=== PATIENT | female | born 1950 | race Caucasian/White ===

== ENCOUNTER 2018-05-22 19:13 | Inpatient (IN) | payer MEDICARE, OTHER ==
[~2018-05-22] VITALS: Ht 162.6 cm; Wt 87.1 kg
[~2018-05-22 19:13] MED LIST: DIPH25CA58 PO; HYDR-2145 PO; LISI1TAB5; LISI1TAB5 PO; LOSA100T2 PO; MELO7.5T29 PO; MELO7.5T5; TRAM50TA PO
[2018-05-22 20:13] LABS: BILIRUBIN,URINE MODERATE (NEG); CLARITY,URINE CLEAR; COLOR,URINE YELLOW; NITRITE,URINE NEGATIVE (NEG); PROTEIN,URINE NEGATIVE (NEG-TRACE); UROBILINOGEN,URINE 0.2 mg/dL (0.2 mg/dL)
[2018-05-22] MEDS ORDERED: fentaNYL PF VIAL 100 MCG/2 ML VIAL IV ONE (20:15)
[2018-05-22] MEDS ORDERED: IV NORMAL SALINE 1000ML BAG 1,000 ML IV ONE ×2 (20:15)
--- NOTE | 2018-05-22 20:16 | PHYS DOC ---
Past Medical History Past Medical History: Diabetes-Type II, Hypertension, Other Additional Past Medical Histor: RSD (KANU RUBIO APRN) Past Surgical History: Appendectomy, Hysterectomy, Other Additional Past Surgical Histo: bilat. lower ribs removed (KANU RUBIO APRN) Alcohol Use: None Drug Use: None (KANU RUBIO APRN) Adult General Chief Complaint Chief Complaint: BLOOD SUGAR PROBLEM HPI HPI 67-year-old female presents to ER via POV from urgent care for elevated blood sugar. Patient reports over the past couple of weeks she has felt fatigued and just not herself. He is type II diabetic but does not check her blood sugar. Patient states she has felt feverish and had dysuria for the past 3 days. Patient reports for the past week she has had right ear pain and reports a couple of days where she had yellowish/purulent drainage. Patient reports she has developed a rash under her left breast. Patient reports she has had increased thirst and urination frequency. Patient denies any chest pain, palpitations, or shortness of air. Patient denies having any abdominal pain or N /V/D. Urgent care had reported to patient her blood sugar was over 500 and she had ketones in her urine. (KANU RUBIO APRN) Review of Systems Review of Systems Constitutional: Denies fever or chills. Reports generalized fatigue/weakness Eyes: Denies change in visual acuity, redness, or eye pain [] HENT: Denies nasal congestion or sore throat. Reports rt ear pressure- with drainage in past few days Respiratory: Denies cough or shortness of breath [] Cardiovascular: Denies CP/palpitations GI: Denies abdominal pain, nausea, vomiting, bloody stools or diarrhea [] : Denies hematuria. Reports increased urination with dysuria Musculoskeletal: Denies back/neck pain or joint pain [] Integument: Denies rash or skin lesions [] Neurologic: Denies dizziness, focal weakness or sensory changes. Endocrine: Reports polyuria or polydipsia [] All other systems were reviewed and found to be within normal limits, except as documented in this note. (KANU RUBIO APRN) Current Medications Current Medications Current Medications Medications (Trade) Dose Ordered Sig/Peggy Start Time Stop Time Status Last Admin Dose Admin Fentanyl Citrate (Fentanyl 2ml Vial) 25 mcg 1X ONCE 05/22/18 20:15 05/22/18 20:16 DC 05/22/18 20:18 25 MCG Sodium Chloride 1,000 ml @ 1,000 mls/hr 1X ONCE 05/22/18 20:15 05/22/18 21:14 DC 05/22/18 20:15 1,000 MLS/HR (CARROLL JOHN DO) Allergies Allergies Allergies Coded Allergies Type Severity Reaction Last Updated Verified Sulfa (Sulfonamide Antibiotics) Allergy Intermediate 08/19/13 Yes codeine Allergy Intermediate tolerates Morphine 08/19/13 Yes erythromycin base Allergy Intermediate 08/19/13 Yes (CARROLL JOHN DO) Physical Exam Physical Exam Constitutional: Well developed, well nourished, anxious/tearful/restless- at times uncooperative during exam and discussion, non-toxic appearance. Fatigued appearance HENT: Normocephalic, atraumatic, bilateral external ears normal- erythema at rt TM without bulging/perforation/purulent or bloody drainage, lt ear exam NL; mucous membranes pink/dry, no oral exudates, nose normal. [] Eyes: PERRLA, conjunctiva normal, no discharge. [] Neck: Normal range of motion, no tenderness, supple, no stridor. [] Cardiovascular: Heart rate regular rhythm, no murmur [] Lungs & Thorax: Bilateral breath sounds clear to auscultation. Resp. equal/ nonlabored Abdomen: Bowel sounds normal, soft, no tenderness, no masses, no pulsatile masses. [] Skin: Warm, dry. Erythema under lt breast with no drainage/open wounds. Site is tender on palp. No breast involvement. Back: No tenderness, no CVA tenderness. [] Extremities: No tenderness, no cyanosis, no clubbing, ROM intact, no edema. [] Neurologic: Alert and oriented X 3, normal motor function, normal sensory function, no focal deficits noted. [] Psychologic: Upon entering pt's room found her to be twisted in call center recruiter cords- crying/anxious. Pt following conversation/emotional support calmed and was more cooperative. She denies SI. (REFFITT,KANU Pfeiffer APRN) Current Patient Data Lab Values Laboratory Tests Test 05/22/18 20:05 05/22/18 20:08 05/22/18 21:57 White Blood Count 7.0 x10^3/uL (4.0-11.0) Red Blood Count 5.13 x10^6/uL (3.50-5.40) Hemoglobin 14.7 g/dL (12.0-15.5) Hematocrit 43.6 % (36.0-47.0) Mean Corpuscular Volume 85 fL (79-100) Mean Corpuscular Hemoglobin 29 pg (25-35) Mean Corpuscular Hemoglobin Concent 34 g/dL (31-37) Red Cell Distribution Width 13.3 % (11.5-14.5) Platelet Count 192 x10^3/uL (140-400) Neutrophils (%) (Auto) 65 % (31-73) Lymphocytes (%) (Auto) 27 % (24-48) Monocytes (%) (Auto) 5 % (0-9) Eosinophils (%) (Auto) 2 % (0-3) Basophils (%) (Auto) 1 % (0-3) Neutrophils # (Auto) 4.6 x10^3uL (1.8-7.7) Lymphocytes # (Auto) 1.9 x10^3/uL (1.0-4.8) Monocytes # (Auto) 0.3 x10^3/uL (0.0-1.1) Eosinophils # (Auto) 0.1 x10^3/uL (0.0-0.7) Basophils # (Auto) 0.1 x10^3/uL (0.0-0.2) Segmented Neutrophils % 62 % (35-66) Band Neutrophils % 6 % (0-9) Lymphocytes % 27 % (24-48) Monocytes % 2 % (0-10) Eosinophils % 3 % (0-5) Platelet Estimate Adequate (ADEQUATE) Urine Collection Type Unknown Urine Color Yellow Urine Clarity Clear Urine pH 5.0 Urine Specific [place] >=1.030 Urine Protein Negative mg/dL (NEG-TRACE) Urine Glucose (UA) >=1000 mg/dL (NEG) Urine Ketones (Stick) 40 mg/dL (NEG) Urine Blood Negative (NEG) Urine Nitrite Negative (NEG) Urine Bilirubin Moderate (NEG) Urine Urobilinogen Dipstick 0.2 mg/dL (0.2 mg/dL) Urine Leukocyte Esterase Negative (NEG) Urine RBC 0 /HPF (0-2) Urine WBC 5-10 /HPF (0-4) Urine Squamous Epithelial Cells Mod /LPF Urine Bacteria Moderate /HPF (0-FEW) Urine Mucus Slight /LPF Sodium Level 126 mmol/L (136-145) L Potassium Level 5.2 mmol/L (3.5-5.1) H Chloride Level 87 mmol/L (98-107) L Carbon Dioxide Level 18 mmol/L (21-32) L Anion Gap 21 (6-14) H Blood Urea Nitrogen 17 mg/dL (7-20) Creatinine 0.9 mg/dL (0.6-1.0) Estimated GFR (Cockcroft-Gault) 62.5 BUN/Creatinine Ratio 19 (6-20) Glucose Level 458 mg/dL (70-99) H Plasma/Serum Osmolality 300 mOsmol/kg (280-301) Calcium Level 9.8 mg/dL (8.5-10.1) Magnesium Level 1.9 mg/dL (1.8-2.4) Total Bilirubin 0.7 mg/dL (0.2-1.0) Aspartate Amino Transferase (AST) 11 U/L (15-37) L Alanine Aminotransferase (ALT) 6 U/L (14-59) L Alkaline Phosphatase 89 U/L (46-116) Troponin I Quantitative < 0.017 ng/mL (0.000-0.055) Total Protein 9.2 g/dL (6.4-8.2) H Albumin 3.2 g/dL (3.4-5.0) L Albumin/Globulin Ratio 0.5 (1.0-1.7) L Acetone Level Neg (NEG) Glucose (Fingerstick) 448 mg/dL (70-99) H 308 mg/dL (70-99) H Laboratory Tests 05/22/18 20:05 Laboratory Tests 05/22/18 20:05 Microbiology 05/22/18 Urine Culture - Final, Complete 05/22/18 Urine Culture Result 1 (ELINOR) - Final, Complete (CARROLL JOHN DO) EKG EKG EKG obtained 05/22/18 at [address] John Sinus rhythm Rate 75 No STEMI (REFKANU MARTIN AUTOMOTIVE STARTER REPAIRER) Radiology/Procedures Radiology/Procedures PROCEDURE: CHEST AP ONLY EXAM: Chest, single view. HISTORY: Fatigue. COMPARISON: 08/19/2013 FINDINGS: A frontal view of the chest obtained. There is no infiltrate, pleural effusion or pneumothorax. The heart is normal in size. There are surgical clips overlying the upper thorax and there has been suspected bilateral first or cervical rib resection. IMPRESSION: No acute pulmonary finding. Electronically signed by: Belkis Lassiter MD (05/22/2018 9:45 PM) [facility] DICTATED and SIGNED BY: BELKIS LASSITER MD DATE: 05/22/182143 (KANU RUBIO APRN) Course & Med Decision Making Course & Med Decision Making Pertinent Labs and Imaging studies reviewed. (See chart for details) Patient was evaluated in the ER for elevated blood sugar- initial blood glucose was 458 with anion gap of 21. Na correction was calculated with correction at 131. Pt had 2L NS IV fld bolus and on recheck. At 2156 following fluid bolus Accu check at 308- 10 units SQ Regular insulin ordered. UA neg. leuks/nitrates- mod bacteria/squamous on micro. Test results and admission discussed with pt- she is agreeable with admit plan. 2250: Spoke with Dr. Caba, pt's PCP and discussed pt's case and admit plan. Will admit pt to Med/Tele for further monitoring. (KANU RUBIO APRN) Dragon Disclaimer Dragon Disclaimer This electronic medical record was generated, in whole or in part, using a voice recognition dictation system. (KANU RUBIO APRN) Departure Departure Impression: Primary Impression: Hyperglycemia Disposition: ADMITTED INPATIENT Admitting Physician: Swetha Caba (CARROLL JOHN DO) Condition: STABLE Referrals: SWETHA CABA MD (PCP) Attending Signature Attending Signature I have reviewed the PA/PARTNER MANAGEMENT CONSULTANT's note and plan of care. I was available for consultation as needed during the patient's visit in the emergency department. I agree with the clinical impression, plan, and disposition. (CARROLL JOHN DO) KANU RUBIO APRN May 22, 2018 20:16 CARROLL JOHN DO Jul 12, 2018 13:20
[2018-05-22 20:18] LABS: BACTERIA,URINE MODERATE /HPF (0-FEW); RBC,URINE 0 /HPF (0-2); SQUAMOUS EPITHELIAL CELL,UR MOD /LPF
[2018-05-22 20:39] LABS: BASO # 0.1 x10^3/uL (0.0-0.2); BASO % 1 % (0-3); EOS # 0.1 x10^3/uL (0.0-0.7); EOS % 2 % (0-3); HEMATOCRIT 43.6 % (36.0-47.0); HEMOGLOBIN 14.7 g/dL (12.0-15.5); LYMPH # 1.9 x10^3/uL (1.0-4.8); LYMPH % 27 % (24-48); MEAN CORPUSCULAR HEMOGLOBIN 29 pg (25-35); MEAN CORPUSCULAR HGB CONC 34 g/dL (31-37); MEAN CORPUSCULAR VOLUME 85 fL (79-100); MONO # 0.3 x10^3/uL (0.0-1.1); MONO % 5 % (0-9); NEUT # 4.6 x10^3uL (1.8-7.7); NEUT % 65 % (31-73); RED BLOOD COUNT 5.13 x10^6/uL (3.50-5.40); RED CELL DISTRIBUTION WIDTH 13.3 % (11.5-14.5)
[2018-05-22 20:41] LABS: PLATELET COUNT 192 x10^3/uL (140-400)
[2018-05-22 21:04] LABS: % BANDS 6 % (0-9); % EOS 3 % (0-5); % LYMPHS 27 % (24-48); % MONOS 2 % (0-10); % SEGS 62 % (35-66); PLT ESTIMATE ADEQUATE (ADEQUATE)
[2018-05-22 21:34] LABS: CALCIUM 9.8 mg/dL (8.5-10.1); CREATININE 0.9 mg/dL (0.6-1.0); GFR 62.5; POTASSIUM 5.2 mmol/L (3.5-5.1)
[2018-05-22 21:40] LABS: TOTAL BILIRUBIN 0.7 mg/dL (0.2-1.0); TOTAL PROTEIN 9.2 g/dL (6.4-8.2)
--- NOTE | 2018-05-22 21:48 | RAD ---
EXAM: Chest, single view. HISTORY: Fatigue. COMPARISON: 08/19/2013 FINDINGS: A frontal view of the chest obtained. There is no infiltrate, pleural effusion or pneumothorax. The heart is normal in size. There are surgical clips overlying the upper thorax and there has been suspected bilateral first or cervical rib resection. IMPRESSION: No acute pulmonary finding. Electronically signed by: Belkis Marcelo MD (05/22/2018 9:45 PM) [facility]
[2018-05-22 22:00] LABS: MAGNESIUM 1.9 mg/dL (1.8-2.4)
[2018-05-22 22:02] LABS: ALBUMIN 3.2 g/dL (3.4-5.0); ALBUMIN/GLOBULIN RATIO 0.5 (1.0-1.7)
[2018-05-22] MEDS ORDERED: INSULIN REGULAR 100 UNIT/ML 3ML VIAL. SQ ONE (23:00)
[2018-05-22] MEDS ORDERED: ACETAMINOPHEN 325 MG TABLET. PO PRN (23:45)
[2018-05-23] VITALS (7 sets, daily range): BP systolic 102–158; BP diastolic 42–89
[2018-05-23] MEDS ORDERED: DEXTROSE 50% 25 GM / 50ML DISP.SYRIN. IV PRN
[2018-05-23] MEDS ORDERED: IV NORMAL SALINE 1000ML BAG 1,000 ML IV SCH
[2018-05-23] MEDS ORDERED: SPIR25TA5 PO (00:51)
[2018-05-23] MEDS ORDERED: METF500T16 PO (00:52)
[2018-05-23 04:59] LABS: BASO % 1 % (0-3); EOS # 0.1 x10^3/uL (0.0-0.7); EOS % 1 % (0-3); HEMATOCRIT 35.3 % (36.0-47.0); HEMOGLOBIN 12.2 g/dL (12.0-15.5); LYMPH # 1.6 x10^3/uL (1.0-4.8); LYMPH % 29 % (24-48); MEAN CORPUSCULAR HEMOGLOBIN 29 pg (25-35); MEAN CORPUSCULAR HGB CONC 35 g/dL (31-37); MEAN CORPUSCULAR VOLUME 83 fL (79-100); MONO # 0.3 x10^3/uL (0.0-1.1); MONO % 5 % (0-9); NEUT # 3.5 x10^3uL (1.8-7.7); NEUT % 64 % (31-73); PLATELET COUNT 128 x10^3/uL (140-400); RED BLOOD COUNT 4.23 x10^6/uL (3.50-5.40); RED CELL DISTRIBUTION WIDTH 13.1 % (11.5-14.5); WHITE BLOOD COUNT 5.5 x10^3/uL (4.0-11.0)
[2018-05-23 05:21] LABS: ALBUMIN 2.3 g/dL (3.4-5.0); ALBUMIN/GLOBULIN RATIO 0.6 (1.0-1.7); CALCIUM 7.9 mg/dL (8.5-10.1); CREATININE 0.7 mg/dL (0.6-1.0); GFR 83.5; POTASSIUM 3.7 mmol/L (3.5-5.1); TOTAL BILIRUBIN 0.4 mg/dL (0.2-1.0)
[2018-05-23 06:01] LABS: TOTAL PROTEIN 6.1 g/dL (6.4-8.2)
[2018-05-23] MEDS ORDERED: INSULIN LISPRO 300 UNITS/3 ML INSULN.PEN. SQ SCH (08:00)
[2018-05-23] MEDS ORDERED: cefTRIAXone IV Push 1 GM VIAL. IVP ONE (08:45)
[2018-05-23] MEDS: NYSTATIN TOPICAL POWDER 15GM BOTTLE. TP SCH ×2 (09:02→20:51)
[2018-05-23] MEDS: NEOMYCIN/POLYMYXIN/HC OTIC SUSPENSION 10ML BOTTLE. AD SCH ×4 (09:14→20:51)
[2018-05-23] MEDS: metFORMIN 500 MG TABLET PO SCH ×2 (09:19→17:42)
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
--- NOTE | 2018-05-23 10:26 | EKG ---
[facility] [address] [place] [address] Test Date: 2018-05-22 Test Time: 20:16:40 Pat Name: KIKI POOLE Department: Room: 648 1 Gender: F Crime Lab Technician: : [id number] Requested By: KANU RUBIO Order Number: [id number] Reading MD: Julian Mobley MD Measurements Intervals [place] Rate: 75 P: -54 NE: 114 QRS: 20 QRSD: 80 T: 139 QT: 392 QTc: 440 Interpretive Statements SR NON-SPECIFIC ST/T CHANGES Electronically Signed On 05-26-2018 10:14:59 PAY PER CLICK STRATEGIST by Julian Mobley MD
[2018-05-23] MEDS ORDERED: INSULIN LISPRO 300 UNITS/3 ML INSULN.PEN. SQ ONE (12:30)
[2018-05-23] MEDS ORDERED: INSULIN GLARGINE 300 UNITS/3 ML INSULN.PEN. SQ SCH (13:00)
[2018-05-23] MEDS ORDERED: diphenhydrAMINE HCL 25 MG CAPSULE PO PRN (13:15)
[2018-05-23] MEDS: traMADol 50 MG TABLET PO PRN ×2 (13:39→20:51)
[2018-05-23] MEDS: SPIRONOLACTONE 25 MG TABLET PO SCH (15:25)
[2018-05-23] MEDS: hydroCHLOROthiazide 25 MG TABLET PO SCH (15:25)
--- NOTE | 2018-05-23 16:29 | PDOC2 ---
NEUROLOGY CONSULT Date of Admission Date of Admission DATE: 05/23/18 TIME: 16:10 Reason for Consult Reason for Consult: IMPRESSION: RSD, chronic. Hyperglycemia, glucose >500 checked in urgent care clinic. Metabolic encephalopathy. Hyponatremia, Na+ 125. Hyperkalemia, K+ 5.2. Generalized weakness. Numbness, tingling, burning and pain around neck and UE. UTI. DM. HTN. Chronic ear pain. Depression. RECOMMENDATIONS/PLAN: Control hyperglycemia. Lyrica 100 mg bid with titration up, but patient had insurance problems for coverage. Vit B6 10 mg daily. Vit B1 100 mg daily. C-spine MRI w/o [place] Lab: see orders including Vit B12 level. Treat medical diseases. Discussed with her in all detail at bedside on 05/23/18. HISTORY OF THE PRESENT ILLNESS: This is a 67-year-old white female, patient of Dr. Tres Gutierrezs, was sent from urgent care to the Emergency Room because of profoundly hyperglycemia. She went to the urgent care because of a right earache and was found to have a right ear infection in addition. She also admits to a little burning with urination and has had a marked increase over the last week of thirst as well as urination, was found to have sugars greater than 500 in urgent care, 458 here with related hyponatremia, decreased CO2 level, increased anion gap. She was noted to have ketones in her urine in addition. Neurology was requested for consultation for RSD. She stated she has been having lomgstanding history of numbness, tingling, burning and pain in her neck , scapular, upper chest, and UE for about 30 years and has tried a variety of treatment but no help. PAST MEDICAL HISTORY: Diabetes, hypertension, and reflex sympathetic dystrophy. PAST SURGICAL HISTORY: Appendectomy, hysterectomy and some prior rib surgery. ALLERGIES: ALLERGIC TO PENICILLIN, SULFA, ERYTHROMYCIN, AND HYDROCODONE. FAMILY HISTORY: Noncontributory. MEDICATIONS: Refer to [facility] SOCIAL HISTORY: Lives at home. Denies drinking and illicit drug use. She smokes 1 pack of cigarettes in 2 days for many years, and quit about 3 weeks ago. REVIEW OF SYSTEMS: Constitutional: Obesity. Head: No traumatic brain or head injury. Skin: No edema, or rash. Ear: Chronic ear infection. Eyes: No vision loss or color blindness. Nose: No bleeding or purulent discharges. Hearing: No hearing decrease. Neck: Pain. Breast: No history of cancer, masses,or discharges. Cardiac: HTN. Pulmonary: No COPD. GI: No GI ulcer, GI bleeding. Urinary/genital: UTI. Endocrinologic: Diabetes Mellitus. Skeletomuscular: Generalized weakness. Neurological: see HP. Psychiatric: Denies drug use/abuse. Otherwise, not [id number] review of systems. PHYSICAL EXAMINATION: General appearance is in subacute distress. HEENT: Normocephalic and nontraumatic. Eyes, nose, ears, and throat are unremarkable. Neck is supple. No lymphadenopathy. No crepitus. Cardiovascular: S1, S2, regular rate and rhythm. Pulmonary: Clear to auscultation bilaterally. Abdomen: Bowel sounds are positive. Extremities: No rash, lesions, or edema. No restriction of range of motion NEUROLOGICAL EXAMINATION: Alert Oriented to time, place and person. PERRL. EOMI. CN: no focal findings. Muscle tone: within normal. Muscle strength: 5- DTR: 1+ Plantar reflex: Flexor response bilaterally Gait: not examined in bed. Sensory exam: no acute abnormal findings. No cerebellar signs elicited. Current Medications Current Medications Current Medications Sodium Chloride 1,000 ml @ 1,000 mls/hr 1X ONCE IV Last administered on at 20:17; Start 05/22/18 at 20:15; Stop 05/22/18 at 21:14; Status DC Sodium Chloride 1,000 ml @ 1,000 mls/hr 1X ONCE IV Last administered on at 20:15; Start 05/22/18 at 20:15; Stop 05/22/18 at 21:14; Status DC Fentanyl Citrate (Fentanyl 2ml Vial) 25 mcg 1X ONCE IV Last administered on 05/22/18at 20:18; Start 05/22/18 at 20:15; Stop 05/22/18 at 20:16; Status DC Insulin Human Regular (HumuLIN R VIAL) 10 unit 1X ONCE SQ Last administered on 05/22/18at 23:30; Start 05/22/18 at 23:00; Stop 05/22/18 at 23:01; Status DC Sodium Chloride 1,000 ml @ 100 mls/hr Q10H IV ; Start 05/23/18 at 00:00; Stop at 00:01; Status DC Acetaminophen (Tylenol) 650 mg PRN Q4HRS PRN PO MILD PAIN; Start 05/22/18 at 23: 45; Stop 05/23/18 at 23:44 Insulin Human Lispro (HumaLOG) 0-5 UNITS TIDWMEALS SQ Last administered on at 09:31; Start 05/23/18 at 08:00; Stop 05/23/18 at 12:36; Status DC Dextrose (Dextrose 50%-Water Syringe) 12.5 gm PRN Q15MIN PRN IV SEE COMMENTS; Start 05/23/18 at 00:00 Nystatin (Nystop) 1 jeremy BID TP Last administered on 05/23/18at 09:02; Start at 09:00 Neomycin/ Polymyxin/ Hydrocortisone (Cortisporin Otic) 2 drop QID AD Last administered on 05/23/18at 13:06; Start 05/23/18 at 09:00 Ceftriaxone Sodium (Rocephin) 1 gm 1X ONCE IVP ; Start 05/23/18 at 08:45; Stop 05/23/18 at 08:46; Status UNV Metformin HCl (Glucophage) 500 mg BIDWMEALS PO Last administered on 05/23/18at 09 :19; Start 05/23/18 at 09:08 Levofloxacin/ Dextrose 100 ml @ 100 mls/hr ONCE ONCE IV Last administered on 05/23/18at 09:02; Start 05/23/18 at 09:00; Stop 05/23/18 at 09:59; Status DC Insulin Human Lispro (HumaLOG) 15 units ONCE ONCE SQ Last administered on at 13:07; Start 05/23/18 at 12:30; Stop 05/23/18 at 12:37; Status DC Insulin Human Lispro (HumaLOG) 10 units TIDAC SQ ; Start 05/23/18 at 16:30 Insulin Human Lispro (HumaLOG) 5 units TIDAC SQ ; Start 05/23/18 at 16:30 Insulin Glargine (Lantus) 20 units DAILY SQ Last administered on 05/23/18at 13:08 ; Start 05/23/18 at 13:00 Diphenhydramine HCl (Benadryl) 25 mg PRN BID PRN PO ITCHING; Start 05/23/18 at 13:15 Diphenhydramine HCl (Benadryl) 50 mg PRN QHS PRN PO INSOMNIA; Start 05/23/18 at 13:15 Hydrochlorothiazide (Hydrodiuril) 25 mg DAILY PO Last administered on 05/23/18at 15:25; Start 05/23/18 at 14:00 Tramadol HCl (Ultram) 50 mg PRN Q6HRS PRN PO MODERATE TO SEVERE PAIN Last administered on 05/23/18at 13:39; Start 05/23/18 at 13:15 Spironolactone (Aldactone) 12.5 mg DAILY PO Last administered on 05/23/18at 15:25 ; Start 05/23/18 at 14:00 Active Scripts Active Reported Metformin Hcl 500 Mg Tablet 1,000 Mg PO DAILYBFRSUP Spironolactone 25 Mg Tablet 12.5 Mg PO DAILY Hydrochlorothiazide Tablet (Hydrochlorothiazide) 25 Mg Tablet 25 Mg PO DAILY Tramadol Hcl 50 Mg Tablet 50 Mg PO PRN Q6HRS PRN Benadryl (Diphenhydramine Hcl) 25 Mg Capsule 50 Mg PO PRN QHS PRN Benadryl (Diphenhydramine Hcl) 25 Mg Capsule 25 Mg PO PRN BID PRN Allergies Allergies: Allergies Coded Allergies Type Severity Reaction Last Updated Verified Penicillins Allergy Severe SOA/ANGIOEDEMA 05/23/18 Yes Sulfa (Sulfonamide Antibiotics) Allergy Intermediate 08/19/13 Yes codeine Allergy Intermediate tolerates Morphine 08/19/13 Yes erythromycin base Allergy Intermediate 08/19/13 Yes hydrocodone Allergy Intermediate 05/22/18 Yes ROS Review of System The patient denies any associated fevers, chills, headache, ear pain, rhinorrhea , sore throat, stiff neck, productive cough, chest pain, shortness of breath, back or flank pain, abdominal pain, nausea, vomiting, diarrhea, constipation, dysuria, rash, numbness, weakness, tingling, incontinence, difficulty ambulating, or diaphoresis. Physical Exam Physical Exam General: Well developed, well nourished, no acute distress, well appearing HEENT: Pupils equally round and reactive to light, EOMI, no discharge, normal conjunctiva Neck: Supple, no nuchal rigidity, no JVD, trachea midline, no tenderness Cardiac: RRR, no murmurs, no gallops, no rubs Chest/Lungs: CTAB, no wheeze, no rhonchi, no crackles Abdomen: soft, non-distended, no guarding, no peritoneal signs, non-tender Back: No tenderness Extremities: no edema, pulses intact, non-tender,capillary refill <3 sec bilateral upper and lower extremities, Neuro: Alert and oriented x 4, no focal deficits, normal speech Vitals Vitals: Vital Signs Date Time Temp Pulse Resp B/P (MAP) Pulse Ox O2 Delivery O2 Flow Rate FiO2 05/23/18 14:45 Room Air 05/23/18 13:39 19 05/23/18 11:00 98.0 70 139/76 (97) 96 98.0 Labs Labs Laboratory Tests Test 05/22/18 20:05 05/22/18 20:08 05/22/18 21:57 05/23/18 00:12 White Blood Count 7.0 x10^3/uL (4.0-11.0) Red Blood Count 5.13 x10^6/uL (3.50-5.40) Hemoglobin 14.7 g/dL (12.0-15.5) Hematocrit 43.6 % (36.0-47.0) Mean Corpuscular Volume 85 fL (79-100) Mean Corpuscular Hemoglobin 29 pg (25-35) Mean Corpuscular Hemoglobin Concent 34 g/dL (31-37) Red Cell Distribution Width 13.3 % (11.5-14.5) Platelet Count 192 x10^3/uL (140-400) Neutrophils (%) (Auto) 65 % (31-73) Lymphocytes (%) (Auto) 27 % (24-48) Monocytes (%) (Auto) 5 % (0-9) Eosinophils (%) (Auto) 2 % (0-3) Basophils (%) (Auto) 1 % (0-3) Neutrophils # (Auto) 4.6 x10^3uL (1.8-7.7) Lymphocytes # (Auto) 1.9 x10^3/uL (1.0-4.8) Monocytes # (Auto) 0.3 x10^3/uL (0.0-1.1) Eosinophils # (Auto) 0.1 x10^3/uL (0.0-0.7) Basophils # (Auto) 0.1 x10^3/uL (0.0-0.2) Segmented Neutrophils % 62 % (35-66) Band Neutrophils % 6 % (0-9) Lymphocytes % 27 % (24-48) Monocytes % 2 % (0-10) Eosinophils % 3 % (0-5) Platelet Estimate Adequate (ADEQUATE) Urine Collection Type Unknown Urine Color Yellow Urine Clarity Clear Urine pH 5.0 Urine Specific [place] >=1.030 Urine Protein Negative mg/dL (NEG-TRACE) Urine Glucose (UA) >=1000 mg/dL (NEG) Urine Ketones (Stick) 40 mg/dL (NEG) Urine Blood Negative (NEG) Urine Nitrite Negative (NEG) Urine Bilirubin Moderate (NEG) Urine Urobilinogen Dipstick 0.2 mg/dL (0.2 mg/dL) Urine Leukocyte Esterase Negative (NEG) Urine RBC 0 /HPF (0-2) Urine WBC 5-10 /HPF (0-4) Urine Squamous Epithelial Cells Mod /LPF Urine Bacteria Moderate /HPF (0-FEW) Urine Mucus Slight /LPF Sodium Level 126 mmol/L (136-145) Potassium Level 5.2 mmol/L (3.5-5.1) Chloride Level 87 mmol/L (98-107) Carbon Dioxide Level 18 mmol/L (21-32) Anion Gap 21 (6-14) Blood Urea Nitrogen 17 mg/dL (7-20) Creatinine 0.9 mg/dL (0.6-1.0) Estimated GFR (Cockcroft-Gault) 62.5 BUN/Creatinine Ratio 19 (6-20) Glucose Level 458 mg/dL (70-99) Calcium Level 9.8 mg/dL (8.5-10.1) Magnesium Level 1.9 mg/dL (1.8-2.4) Total Bilirubin 0.7 mg/dL (0.2-1.0) Aspartate Amino Transf (AST/SGOT) 11 U/L (15-37) Alanine Aminotransferase (ALT/SGPT) 6 U/L (14-59) Alkaline Phosphatase 89 U/L (46-116) Troponin I Quantitative < 0.017 ng/mL (0.000-0.055) Total Protein 9.2 g/dL (6.4-8.2) Albumin 3.2 g/dL (3.4-5.0) Albumin/Globulin Ratio 0.5 (1.0-1.7) Acetone Level Neg (NEG) Glucose (Fingerstick) 448 mg/dL (70-99) 308 mg/dL (70-99) 304 mg/dL (70-99) Test 05/23/18 04:05 05/23/18 07:14 05/23/18 11:55 White Blood Count 5.5 x10^3/uL (4.0-11.0) Red Blood Count 4.23 x10^6/uL (3.50-5.40) Hemoglobin 12.2 g/dL (12.0-15.5) Hematocrit 35.3 % (36.0-47.0) Mean Corpuscular Volume 83 fL (79-100) Mean Corpuscular Hemoglobin 29 pg (25-35) Mean Corpuscular Hemoglobin Concent 35 g/dL (31-37) Red Cell Distribution Width 13.1 % (11.5-14.5) Platelet Count 128 x10^3/uL (140-400) Neutrophils (%) (Auto) 64 % (31-73) Lymphocytes (%) (Auto) 29 % (24-48) Monocytes (%) (Auto) 5 % (0-9) Eosinophils (%) (Auto) 1 % (0-3) Basophils (%) (Auto) 1 % (0-3) Neutrophils # (Auto) 3.5 x10^3uL (1.8-7.7) Lymphocytes # (Auto) 1.6 x10^3/uL (1.0-4.8) Monocytes # (Auto) 0.3 x10^3/uL (0.0-1.1) Eosinophils # (Auto) 0.1 x10^3/uL (0.0-0.7) Basophils # (Auto) 0.0 x10^3/uL (0.0-0.2) Sodium Level 133 mmol/L (136-145) Potassium Level 3.7 mmol/L (3.5-5.1) Chloride Level 99 mmol/L (98-107) Carbon Dioxide Level 24 mmol/L (21-32) Anion Gap 10 (6-14) Blood Urea Nitrogen 14 mg/dL (7-20) Creatinine 0.7 mg/dL (0.6-1.0) Estimated GFR (Cockcroft-Gault) 83.5 BUN/Creatinine Ratio 20 (6-20) Glucose Level 338 mg/dL (70-99) Calcium Level 7.9 mg/dL (8.5-10.1) Total Bilirubin 0.4 mg/dL (0.2-1.0) Aspartate Amino Transf (AST/SGOT) 42 U/L (15-37) Alanine Aminotransferase (ALT/SGPT) 61 U/L (14-59) Alkaline Phosphatase 65 U/L (46-116) Total Protein 6.1 g/dL (6.4-8.2) Albumin 2.3 g/dL (3.4-5.0) Albumin/Globulin Ratio 0.6 (1.0-1.7) Thyroid Stimulating Hormone (TSH) 1.598 uIU/mL (0.358-3.74) Glucose (Fingerstick) 289 mg/dL (70-99) 464 mg/dL (70-99) Laboratory Tests Test 05/22/18 20:05 05/22/18 20:08 05/22/18 21:57 05/23/18 00:12 White Blood Count 7.0 x10^3/uL (4.0-11.0) Red Blood Count 5.13 x10^6/uL (3.50-5.40) Hemoglobin 14.7 g/dL (12.0-15.5) Hematocrit 43.6 % (36.0-47.0) Mean Corpuscular Volume 85 fL (79-100) Mean Corpuscular Hemoglobin 29 pg (25-35) Mean Corpuscular Hemoglobin Concent 34 g/dL (31-37) Red Cell Distribution Width 13.3 % (11.5-14.5) Platelet Count 192 x10^3/uL (140-400) Neutrophils (%) (Auto) 65 % (31-73) Lymphocytes (%) (Auto) 27 % (24-48) Monocytes (%) (Auto) 5 % (0-9) Eosinophils (%) (Auto) 2 % (0-3) Basophils (%) (Auto) 1 % (0-3) Neutrophils # (Auto) 4.6 x10^3uL (1.8-7.7) Lymphocytes # (Auto) 1.9 x10^3/uL (1.0-4.8) Monocytes # (Auto) 0.3 x10^3/uL (0.0-1.1) Eosinophils # (Auto) 0.1 x10^3/uL (0.0-0.7) Basophils # (Auto) 0.1 x10^3/uL (0.0-0.2) Segmented Neutrophils % 62 % (35-66) Band Neutrophils % 6 % (0-9) Lymphocytes % 27 % (24-48) Monocytes % 2 % (0-10) Eosinophils % 3 % (0-5) Platelet Estimate Adequate (ADEQUATE) Urine Collection Type Unknown Urine Color Yellow Urine Clarity Clear Urine pH 5.0 Urine Specific [place] >=1.030 Urine Protein Negative mg/dL (NEG-TRACE) Urine Glucose (UA) >=1000 mg/dL (NEG) Urine Ketones (Stick) 40 mg/dL (NEG) Urine Blood Negative (NEG) Urine Nitrite Negative (NEG) Urine Bilirubin Moderate (NEG) Urine Urobilinogen Dipstick 0.2 mg/dL (0.2 mg/dL) Urine Leukocyte Esterase Negative (NEG) Urine RBC 0 /HPF (0-2) Urine WBC 5-10 /HPF (0-4) Urine Squamous Epithelial Cells Mod /LPF Urine Bacteria Moderate /HPF (0-FEW) Urine Mucus Slight /LPF Sodium Level 126 mmol/L (136-145) Potassium Level 5.2 mmol/L (3.5-5.1) Chloride Level 87 mmol/L (98-107) Carbon Dioxide Level 18 mmol/L (21-32) Anion Gap 21 (6-14) Blood Urea Nitrogen 17 mg/dL (7-20) Creatinine 0.9 mg/dL (0.6-1.0) Estimated GFR (Cockcroft-Gault) 62.5 BUN/Creatinine Ratio 19 (6-20) Glucose Level 458 mg/dL (70-99) Calcium Level 9.8 mg/dL (8.5-10.1) Magnesium Level 1.9 mg/dL (1.8-2.4) Total Bilirubin 0.7 mg/dL (0.2-1.0) Aspartate Amino Transf (AST/SGOT) 11 U/L (15-37) Alanine Aminotransferase (ALT/SGPT) 6 U/L (14-59) Alkaline Phosphatase 89 U/L (46-116) Troponin I Quantitative < 0.017 ng/mL (0.000-0.055) Total Protein 9.2 g/dL (6.4-8.2) Albumin 3.2 g/dL (3.4-5.0) Albumin/Globulin Ratio 0.5 (1.0-1.7) Acetone Level Neg (NEG) Glucose (Fingerstick) 448 mg/dL (70-99) 308 mg/dL (70-99) 304 mg/dL (70-99) Test 05/23/18 04:05 05/23/18 07:14 05/23/18 11:55 White Blood Count 5.5 x10^3/uL (4.0-11.0) Red Blood Count 4.23 x10^6/uL (3.50-5.40) Hemoglobin 12.2 g/dL (12.0-15.5) Hematocrit 35.3 % (36.0-47.0) Mean Corpuscular Volume 83 fL (79-100) Mean Corpuscular Hemoglobin 29 pg (25-35) Mean Corpuscular Hemoglobin Concent 35 g/dL (31-37) Red Cell Distribution Width 13.1 % (11.5-14.5) Platelet Count 128 x10^3/uL (140-400) Neutrophils (%) (Auto) 64 % (31-73) Lymphocytes (%) (Auto) 29 % (24-48) Monocytes (%) (Auto) 5 % (0-9) Eosinophils (%) (Auto) 1 % (0-3) Basophils (%) (Auto) 1 % (0-3) Neutrophils # (Auto) 3.5 x10^3uL (1.8-7.7) Lymphocytes # (Auto) 1.6 x10^3/uL (1.0-4.8) Monocytes # (Auto) 0.3 x10^3/uL (0.0-1.1) Eosinophils # (Auto) 0.1 x10^3/uL (0.0-0.7) Basophils # (Auto) 0.0 x10^3/uL (0.0-0.2) Sodium Level 133 mmol/L (136-145) Potassium Level 3.7 mmol/L (3.5-5.1) Chloride Level 99 mmol/L (98-107) Carbon Dioxide Level 24 mmol/L (21-32) Anion Gap 10 (6-14) Blood Urea Nitrogen 14 mg/dL (7-20) Creatinine 0.7 mg/dL (0.6-1.0) Estimated GFR (Cockcroft-Gault) 83.5 BUN/Creatinine Ratio 20 (6-20) Glucose Level 338 mg/dL (70-99) Calcium Level 7.9 mg/dL (8.5-10.1) Total Bilirubin 0.4 mg/dL (0.2-1.0) Aspartate Amino Transf (AST/SGOT) 42 U/L (15-37) Alanine Aminotransferase (ALT/SGPT) 61 U/L (14-59) Alkaline Phosphatase 65 U/L (46-116) Total Protein 6.1 g/dL (6.4-8.2) Albumin 2.3 g/dL (3.4-5.0) Albumin/Globulin Ratio 0.6 (1.0-1.7) Thyroid Stimulating Hormone (TSH) 1.598 uIU/mL (0.358-3.74) Glucose (Fingerstick) 289 mg/dL (70-99) 464 mg/dL (70-99) ANITRA GUZMÁN MD May 23, 2018 16:29
[2018-05-23] MEDS: INSULIN LISPRO 300 UNITS/3 ML INSULN.PEN. SQ SCH ×2 (16:30→17:47)
[2018-05-23] MEDS: PYRIDOXINE 50 MG TABLET. PO SCH (17:41)
[2018-05-23] MEDS: THIAMINE 100 MG TABLET. PO SCH (17:41)
[2018-05-23] MEDS: ALPRAZolam 0.5 MG TABLET PO PRN (17:41)
[2018-05-23 18:13] LABS: BARBITURATES NEG (NEG); BENZODIAZEPINES NEG (NEG); CANNABINOIDS NEG (NEG); COCAINE NEG (NEG); METHADONE NEG (NEG); OPIATES NEG (NEG); PHENCYCLIDINE NEG (NEG)
[2018-05-23 18:18] LABS: AMPHETAMINE/METHAMPHETAMINE NEG (NEG)
[2018-05-23] MEDS: diphenhydrAMINE HCL 25 MG CAPSULE PO PRN (20:51)
[2018-05-24] MEDS: ALPRAZolam 0.5 MG TABLET PO PRN ×2 (02:09→21:30)
[2018-05-24] MEDS: traMADol 50 MG TABLET PO PRN ×4 (02:44→21:30)
[2018-05-24] MEDS ORDERED: INSULIN LISPRO 300 UNITS/3 ML INSULN.PEN. SQ ONE (03:00)
[2018-05-24] MEDS ORDERED: INSULIN GLARGINE 300 UNITS/3 ML INSULN.PEN. SQ ONE (03:00)
[2018-05-24 05:42] LABS: HEMOGLOBIN A1C 16.3 % (4.8-5.6)
[2018-05-24] MEDS: INSULIN LISPRO 300 UNITS/3 ML INSULN.PEN. SQ SCH ×6 (07:30→16:30)
[2018-05-24 07:40] VITALS: BP 109/66
[2018-05-24] MEDS ORDERED: INSULIN GLARGINE 300 UNITS/3 ML INSULN.PEN. SQ SCH (09:00)
[2018-05-24] MEDS: SPIRONOLACTONE 25 MG TABLET PO SCH (09:00)
[2018-05-24] MEDS: NYSTATIN TOPICAL POWDER 15GM BOTTLE. TP SCH ×2 (09:13→20:22)
[2018-05-24] MEDS: PYRIDOXINE 50 MG TABLET. PO SCH (09:14)
[2018-05-24] MEDS: NEOMYCIN/POLYMYXIN/HC OTIC SUSPENSION 10ML BOTTLE. AD SCH ×4 (09:14→20:22)
[2018-05-24] MEDS: hydroCHLOROthiazide 25 MG TABLET PO SCH (09:14)
[2018-05-24] MEDS: THIAMINE 100 MG TABLET. PO SCH (09:14)
[2018-05-24] MEDS: metFORMIN 500 MG TABLET PO SCH ×2 (09:16→17:00)
[2018-05-24 10:54] VITALS: BP 137/62
[2018-05-24 15:06] VITALS: BP 147/60
--- NOTE | 2018-05-24 15:06 | PDOC ---
PROGRESS NOTES Assessment Assessment RSD, chronic. Hyperglycemia, glucose >500 checked in urgent care clinic. Metabolic encephalopathy. Hyponatremia, Na+ 125. Hyperkalemia, K+ 5.2. Generalized weakness. Numbness, tingling, burning and pain around neck and UE. UTI. DM, not controlled, HgbA1C 16.3 HTN. Chronic ear pain, diabetic external ear channel infection. Depression. Obesity. RECOMMENDATIONS/PLAN: Control hyperglycemia. Lyrica 100 mg bid with titration up, but patient had insurance problems for coverage. Vit B6 10 mg daily. Vit B1 100 mg daily. C-spine MRI w/[place] contrast[place] Lab: see orders including Vit B12 level. Treat medical diseases. Discussed with her in all detail again at bedside on 05/24/18. HISTORY OF THE PRESENT ILLNESS: This is a 67-year-old white female, patient of Dr. Tres Alberto, was sent from urgent care to the Emergency Room because of profoundly hyperglycemia. She went to the urgent care because of a right earache and was found to have a right ear infection in addition. She also admits to a little burning with urination and has had a marked increase over the last week of thirst as well as urination, was found to have sugars greater than 500 in urgent care, 458 here with related hyponatremia, decreased CO2 level, increased anion gap. She was noted to have ketones in her urine in addition. Neurology was requested for consultation for RSD. She stated she has been having lomgstanding history of numbness, tingling, burning and pain in her neck , scapular, upper chest, and UE for about 30 years and has tried a variety of treatment but no help. PAST MEDICAL HISTORY: Diabetes, hypertension, and reflex sympathetic dystrophy. PAST SURGICAL HISTORY: Appendectomy, hysterectomy and some prior rib surgery. ALLERGIES: ALLERGIC TO PENICILLIN, SULFA, ERYTHROMYCIN, AND HYDROCODONE. FAMILY HISTORY: Noncontributory. MEDICATIONS: Refer to [facility] SOCIAL HISTORY: Lives at home. Denies drinking and illicit drug use. She smokes 1 pack of cigarettes in 2 days for many years, and quit about 3 weeks ago. REVIEW OF SYSTEMS: Constitutional: Obesity. Head: No traumatic brain or head injury. Skin: No edema, or rash. Ear: Chronic ear infection. Eyes: No vision loss or color blindness. Nose: No bleeding or purulent discharges. Hearing: No hearing decrease. Neck: Pain. Breast: No history of cancer, masses,or discharges. Cardiac: HTN. Pulmonary: No COPD. GI: No GI ulcer, GI bleeding. Urinary/genital: UTI. Endocrinologic: Diabetes Mellitus. Skeletomuscular: Generalized weakness. Neurological: see HP. Psychiatric: Denies drug use/abuse. Otherwise, not [id number] review of systems. PHYSICAL EXAMINATION: General appearance is in subacute distress. HEENT: Normocephalic and nontraumatic. Eyes, nose, ears, and throat are unremarkable. Neck is supple. No lymphadenopathy. No crepitus. Cardiovascular: S1, S2, regular rate and rhythm. Pulmonary: Clear to auscultation bilaterally. Abdomen: Bowel sounds are positive. Extremities: No rash, lesions, or edema. No restriction of range of motion NEUROLOGICAL EXAMINATION: Alert Oriented to time, place and person. PERRL. EOMI. CN: no focal findings. Muscle tone: within normal. Muscle strength: 5- DTR: 1+ Plantar reflex: Flexor response bilaterally Gait: at her baseline normal. Sensory exam: no acute abnormal findings. No cerebellar signs elicited. Objective Objective Vital Signs Date Time Temp Pulse Resp B/P (MAP) Pulse Ox O2 Delivery O2 Flow Rate FiO2 05/24/18 10:54 97.1 87 18 137/62 (87) 95 Room Air 97.1 Intake and Output 05/24/18 06:59 Intake Total 2510 ml Output Total 2050 ml Balance 460 ml Intake Oral 2510 ml Output Urine Total 2050 ml Vitals Signs Vitals VS - Last 72 Hours, by Label Date Time Temp Pulse Resp B/P (MAP) Pulse Ox O2 Delivery O2 Flow Rate FiO2 05/24/18 10:54 97.1 87 18 137/62 (87) 95 Room Air 97.1 05/24/18 10:19 18 Room Air 05/24/18 09:19 17 Room Air 05/24/18 08:00 Room Air 05/24/18 07:40 98.0 86 17 109/66 (80) 94 Room Air 98.0 05/24/18 03:44 93 05/24/18 02:44 18 93 Room Air 05/23/18 23:21 98.0 55 18 113/57 (75) 93 Room Air 98.0 05/23/18 20:51 18 96 Room Air 05/23/18 20:00 Room Air 05/23/18 19:10 97.8 62 18 120/48 (72) 96 Room Air 97.8 05/23/18 17:18 87 18 158/79 (105) 97 Room Air 05/23/18 13:39 19 Room Air 05/23/18 11:00 98.0 70 18 139/76 (97) 96 Room Air 98.0 05/23/18 08:00 Room Air 05/23/18 07:00 97.8 79 18 102/42 (62) 94 Room Air 97.8 Laboratory Laboratory Laboratory Tests Test 05/23/18 16:45 05/23/18 17:12 05/23/18 20:16 05/24/18 02:15 Urine Opiates Screen Neg (NEG) Urine Methadone Screen Neg (NEG) Urine Barbiturates Neg (NEG) Urine Phencyclidine Screen Neg (NEG) Urine Amphetamine/Methamphetamine Neg (NEG) Urine Benzodiazepines Screen Neg (NEG) Urine Cocaine Screen Neg (NEG) Urine Cannabinoids Screen Neg (NEG) Urine Ethyl Alcohol Neg (NEG) Glucose (Fingerstick) 303 mg/dL (70-99) 243 mg/dL (70-99) 406 mg/dL (70-99) Test 05/24/18 06:59 05/24/18 11:45 05/24/18 12:20 Glucose (Fingerstick) 244 mg/dL (70-99) 301 mg/dL (70-99) Erythrocyte Sedimentation Rate 40 (0-25) Creatine Kinase 22 U/L (26-192) Medication Medications Current Medications Alprazolam (Xanax) 0.5 mg PRN Q8HRS PRN PO ANXIETY / AGITATION Last administered on 05/24/18at 02:09; Start 05/23/18 at 17:30 Insulin Glargine (Lantus) 20 units 1X ONCE SQ Last administered on 05/24/18 02 :53; Start 05/24/18 at 03:00; Stop 05/24/18 at 03:01; Status DC Insulin Glargine (Lantus) 40 units DAILY SQ Last administered on 05/24/18at 09:00 ; Start 05/24/18 at 09:00; Stop 05/24/18 at 12:15; Status DC Insulin Glargine (Lantus) 60 units DAILY SQ ; Start 05/25/18 at 09:00 Insulin Human Lispro (HumaLOG) 5 units TIDAC SQ ; Start 05/23/18 at 16:30 Insulin Human Lispro (HumaLOG) 10 units TIDAC SQ Last administered on 05/24/18at 12:18; Start 05/23/18 at 16:30 Insulin Human Lispro (HumaLOG) 20 units 1X ONCE SQ Last administered on at 02:52; Start 05/24/18 at 03:00; Stop 05/24/18 at 03:01; Status DC Levofloxacin/ Dextrose 100 ml @ 100 mls/hr Q24H IV Last administered on at 13:00; Start 05/24/18 at 13:00 Pyridoxine HCl (Vitamin B-6) 50 mg DAILY PO Last administered on 05/24/18at 09:14 ; Start 05/23/18 at 17:00 Thiamine Mononitrate (Vitamin B-1) 100 mg DAILY PO Last administered on at 09:14; Start 05/23/18 at 17:00 Comment Review of Relevant I have reviewed the following items zurdo (where applicable) has been applied. ANITRA GUZMÁN MD May 24, 2018 15:06
[2018-05-24 19:29] VITALS: BP 112/58
[2018-05-24 23:29] VITALS: BP 132/47
[2018-05-25] MEDS: diphenhydrAMINE HCL 25 MG CAPSULE PO PRN (02:25)
[2018-05-25 03:31] VITALS: BP 120/51
--- NOTE | 2018-05-25 06:11 | PN ---
DATE: 05/24/2018 LOCATION: She is room 648. SUBJECTIVE: The patient is awake, alert, has multiple questions on how her sugars could be running so high currently at this point in time with the fact that her last hemoglobin A1c in February was only 7.4 and that she has actually been eating right and has lost 50-60 pounds over the last couple of years to try to control her diabetes. She does admit that her right ear is feeling somewhat better. OBJECTIVE: VITAL SIGNS: Stable. She is afebrile. GENERAL: She is awake and alert. Sugars are anywhere from 240 up to the low 400s. This was with Lantus started yesterday with her fasting sugar this morning being 244, so I will increase that further. She remains on sliding scale insulin. CHEST: Clear. HEART: Regular. ABDOMEN: Benign. Less tragal tenderness on examination of her ear. IMPRESSION: 1. Hyperglycemia still a problem, but working towards resolution. Metformin has been restarted. 2. Right ear infection. 3. Hypertension. PLAN: We will increase Lantus further. We will give another dose of Levaquin today for the year. Otherwise, continue same. KATY BERG MD DR: DARION/shelly JOB#: [id number] / [id number]
[2018-05-25 07:00] VITALS: BP 111/44
[2018-05-25] MEDS ORDERED: FLUCONAZOLE 100 MG TABLET. PO ONE (08:00)
--- NOTE | 2018-05-25 08:08 | PDOC ---
Provider Note Provider Note glucose still > 300 on 40 delmi/30 humalog- inc to 70/12 ac, s her will take scripts to pharm to learn what is covered- cipro re uti, she declines garret trial re rsd- rest ok- can dc when sure what is covered and has glucometer SWETHA CABA MD May 25, 2018 08:08
[2018-05-25] MEDS: metFORMIN 500 MG TABLET PO SCH ×2 (08:49→17:25)
[2018-05-25] MEDS: NEOMYCIN/POLYMYXIN/HC OTIC SUSPENSION 10ML BOTTLE. AD SCH ×4 (08:49→20:09)
[2018-05-25] MEDS: SPIRONOLACTONE 25 MG TABLET PO SCH (08:50)
[2018-05-25] MEDS: NYSTATIN TOPICAL POWDER 15GM BOTTLE. TP SCH ×2 (08:51→20:09)
[2018-05-25] MEDS: hydroCHLOROthiazide 25 MG TABLET PO SCH (08:51)
[2018-05-25] MEDS: THIAMINE 100 MG TABLET. PO SCH (08:51)
[2018-05-25] MEDS: PYRIDOXINE 50 MG TABLET. PO SCH (08:51)
[2018-05-25] MEDS: CIPROFLOXACIN HCL 250 MG TABLET. PO SCH ×2 (08:53→20:08)
[2018-05-25] MEDS: traMADol 50 MG TABLET PO PRN ×2 (08:57→20:08)
[2018-05-25] MEDS ORDERED: INSULIN GLARGINE 300 UNITS/3 ML INSULN.PEN. SQ SCH (09:00)
[2018-05-25] MEDS: INSULIN GLARGINE 300 UNITS/3 ML INSULN.PEN. SQ SCH (09:06)
--- NOTE | 2018-05-25 10:18 | PDOC ---
PROGRESS NOTES Assessment RSD, complex regional pain syndrome I, chronic. Hyperglycemia, glucose >500 checked in urgent care clinic. Metabolic encephalopathy. Hyponatremia, Na+ 125. Hyperkalemia, K+ 5.2. Generalized weakness. Numbness, tingling, burning and pain around neck and UE. UTI. DM, not controlled, HgbA1C 16.3 HTN. Chronic ear pain, diabetic external ear channel infection. Depression. Obesity. Plan Control hyperglycemia. Lyrica 100 mg bid with titration up, but patient had insurance problems for coverage. Vit B6 10 mg daily. Vit B1 100 mg daily. C-spine MRI w/o contrast, out-patient basis OK. Since she'll be here an extra day, I asked Dr. Quiñones to see her about possible spinal cord stimulator Subjective No new complaints Objective Vital Signs Date Time Temp Pulse Resp B/P (MAP) Pulse Ox O2 Delivery O2 Flow Rate FiO2 05/25/18 08:57 Room Air 05/25/18 07:00 97.7 59 16 111/44 (66) 92 97.7 Intake and Output 05/25/18 07:00 Intake Total 2200 ml Balance 2200 ml Intake Oral 2200 ml # Voids 5 PHYSICAL EXAM Alert. Oriented to time, place and person. PERRL. EOMI. CN: no focal findings. Muscle tone: normal. Muscle strength: 5 -/5 DTR: 1+ Plantar reflex: flexor Gait: not examined in bed. Sensory exam: no abnormal findings. No cerebellar signs elicited. No skin changes of complex regional pain syndrome Review of Relevant I have reviewed the following items zurdo (where applicable) has been applied. Labs Laboratory Tests Test 05/23/18 11:55 05/23/18 12:44 05/23/18 16:45 05/23/18 17:12 Glucose (Fingerstick) 464 mg/dL (70-99) 303 mg/dL (70-99) Hemoglobin A1c 16.3 % (4.8-5.6) Urine Opiates Screen Neg (NEG) Urine Methadone Screen Neg (NEG) Urine Barbiturates Neg (NEG) Urine Phencyclidine Screen Neg (NEG) Urine Amphetamine/Methamphetamine Neg (NEG) Urine Benzodiazepines Screen Neg (NEG) Urine Cocaine Screen Neg (NEG) Urine Cannabinoids Screen Neg (NEG) Urine Ethyl Alcohol Neg (NEG) Test 05/23/18 20:16 05/24/18 02:15 05/24/18 06:59 05/24/18 11:45 Glucose (Fingerstick) 243 mg/dL (70-99) 406 mg/dL (70-99) 244 mg/dL (70-99) 301 mg/dL (70-99) Test 05/24/18 12:20 05/24/18 16:47 05/24/18 19:41 05/25/18 02:33 Erythrocyte Sedimentation Rate 40 (0-25) Creatine Kinase 22 U/L (26-192) Glucose (Fingerstick) 235 mg/dL (70-99) 291 mg/dL (70-99) 287 mg/dL (70-99) Test 05/25/18 07:12 Glucose (Fingerstick) 249 mg/dL (70-99) Laboratory Tests Test 05/24/18 11:45 05/24/18 12:20 05/24/18 16:47 05/24/18 19:41 Glucose (Fingerstick) 301 mg/dL (70-99) 235 mg/dL (70-99) 291 mg/dL (70-99) Erythrocyte Sedimentation Rate 40 (0-25) Creatine Kinase 22 U/L (26-192) Test 05/25/18 02:33 05/25/18 07:12 Glucose (Fingerstick) 287 mg/dL (70-99) 249 mg/dL (70-99) Microbiology 05/22/18 Urine Culture - Final, Complete 05/22/18 Urine Culture Result 1 (ELINOR) - Final, Complete Medications Current Medications Sodium Chloride 1,000 ml @ 1,000 mls/hr 1X ONCE IV Last administered on at 20:17; Start 05/22/18 at 20:15; Stop 05/22/18 at 21:14; Status DC Sodium Chloride 1,000 ml @ 1,000 mls/hr 1X ONCE IV Last administered on at 20:15; Start 05/22/18 at 20:15; Stop 05/22/18 at 21:14; Status DC Fentanyl Citrate (Fentanyl 2ml Vial) 25 mcg 1X ONCE IV Last administered on 05/22/18at 20:18; Start 05/22/18 at 20:15; Stop 05/22/18 at 20:16; Status DC Insulin Human Regular (HumuLIN R VIAL) 10 unit 1X ONCE SQ Last administered on 05/22/18 23:30; Start 05/22/18 at 23:00; Stop 05/22/18 at 23:01; Status DC Sodium Chloride 1,000 ml @ 100 mls/hr Q10H IV ; Start 05/23/18 at 00:00; Stop at 00:01; Status DC Acetaminophen (Tylenol) 650 mg PRN Q4HRS PRN PO MILD PAIN; Start 05/22/18 at 23: 45; Stop 05/23/18 at 23:44; Status DC Insulin Human Lispro (HumaLOG) 0-5 UNITS TIDWMEALS SQ Last administered on 09:31; Start 05/23/18 at 08:00; Stop 05/23/18 at 12:36; Status DC Dextrose (Dextrose 50%-Water Syringe) 12.5 gm PRN Q15MIN PRN IV SEE COMMENTS; Start 05/23/18 at 00:00 Nystatin (Nystop) 1 jeremy BID TP Last administered on 05/25/18at 08:51; Start at 09:00 Neomycin/ Polymyxin/ Hydrocortisone (Cortisporin Otic) 2 drop QID AD Last administered on 05/25/18 08:49; Start 05/23/18 at 09:00 Ceftriaxone Sodium (Rocephin) 1 gm 1X ONCE IVP ; Start 05/23/18 at 08:45; Stop 05/23/18 at 08:46; Status UNV Metformin HCl (Glucophage) 500 mg BIDWMEALS PO Last administered on 05/25/18at 08 :49; Start 05/23/18 at 09:08 Levofloxacin/ Dextrose 100 ml @ 100 mls/hr ONCE ONCE IV Last administered on 05/23/18 09:02; Start 05/23/18 at 09:00; Stop 05/23/18 at 09:59; Status DC Insulin Human Lispro (HumaLOG) 15 units ONCE ONCE SQ Last administered on at 13:07; Start 05/23/18 at 12:30; Stop 05/23/18 at 12:37; Status DC Insulin Human Lispro (HumaLOG) 10 units TIDAC SQ Last administered on 05/24/18 16:30; Start 05/23/18 at 16:30; Stop 05/25/18 at 08:09; Status DC Insulin Human Lispro (HumaLOG) 5 units TIDAC SQ ; Start 05/23/18 at 16:30; Stop 05/25/18 at 08:10; Status DC Insulin Glargine (Lantus) 20 units DAILY SQ Last administered on 05/23/18 13:08 ; Start 05/23/18 at 13:00; Stop 05/24/18 at 02:31; Status DC Diphenhydramine HCl (Benadryl) 25 mg PRN BID PRN PO ITCHING; Start 05/23/18 at 13:15 Diphenhydramine HCl (Benadryl) 50 mg PRN QHS PRN PO INSOMNIA Last administered on 05/25/18 02:25; Start 05/23/18 at 13:15 Hydrochlorothiazide (Hydrodiuril) 25 mg DAILY PO Last administered on 05/25/18 08:51; Start 05/23/18 at 14:00 Tramadol HCl (Ultram) 50 mg PRN Q6HRS PRN PO MODERATE TO SEVERE PAIN Last administered on 05/25/18 08:57; Start 05/23/18 at 13:15 Spironolactone (Aldactone) 12.5 mg DAILY PO Last administered on 05/25/18 08:50 ; Start 05/23/18 at 14:00 Thiamine Mononitrate (Vitamin B-1) 100 mg DAILY PO Last administered on 08:51; Start 05/23/18 at 17:00 Pyridoxine HCl (Vitamin B-6) 50 mg DAILY PO Last administered on 05/25/18 08:51 ; Start 05/23/18 at 17:00 Alprazolam (Xanax) 0.5 mg PRN Q8HRS PRN PO ANXIETY / AGITATION Last administered on 05/24/18 21:30; Start 05/23/18 at 17:30 Insulin Glargine (Lantus) 40 units DAILY SQ Last administered on 05/24/18 09:00 ; Start 05/24/18 at 09:00; Stop 05/24/18 at 12:15; Status DC Insulin Glargine (Lantus) 20 units 1X ONCE SQ Last administered on 3/3/19at 02 :53; Start 05/24/18 at 03:00; Stop 05/24/18 at 03:01; Status DC Insulin Human Lispro (HumaLOG) 20 units 1X ONCE SQ Last administered on at 02:52; Start 05/24/18 at 03:00; Stop 05/24/18 at 03:01; Status DC Insulin Glargine (Lantus) 60 units DAILY SQ ; Start 05/25/18 at 09:00; Stop at 09:00; Status DC Levofloxacin/ Dextrose 100 ml @ 100 mls/hr Q24H IV Last administered on at 13:00; Start 05/24/18 at 13:00; Stop 05/25/18 at 08:10; Status DC Insulin Glargine (Lantus) 70 units DAILY SQ Last administered on 05/25/18at 09:06 ; Start 05/25/18 at 09:00 Insulin Human Lispro (HumaLOG) 12 units TIDAC SQ ; Start 05/25/18 at 11:30 Ciprofloxacin (Cipro) 250 mg BID PO Last administered on 05/25/18at 08:53; Start 05/25/18 at 09:00 Fluconazole (Diflucan) 150 mg 1X ONCE PO Last administered on 05/25/18at 08:47; Start 05/25/18 at 08:00; Stop 05/25/18 at 08:17; Status DC Active Scripts Active Reported Metformin Hcl 500 Mg Tablet 1,000 Mg PO DAILYBFRSUP Spironolactone 25 Mg Tablet 12.5 Mg PO DAILY Hydrochlorothiazide Tablet (Hydrochlorothiazide) 25 Mg Tablet 25 Mg PO DAILY Tramadol Hcl 50 Mg Tablet 50 Mg PO PRN Q6HRS PRN Benadryl (Diphenhydramine Hcl) 25 Mg Capsule 50 Mg PO PRN QHS PRN Benadryl (Diphenhydramine Hcl) 25 Mg Capsule 25 Mg PO PRN BID PRN Vitals/I & O Vital Sign - Last 24 Hours 05/24/18 05/24/18 05/24/18 05/24/18 10:54 15:06 15:25 19:29 Temp 97.1 98.4 98.2 97.1 98.4 98.2 Pulse 87 88 66 Resp 18 18 18 18 B/P (MAP) 137/62 (87) 147/60 (89) 112/58 (76) Pulse Ox 95 99 93 O2 Delivery Room Air Room Air Room Air Room Air 05/24/18 05/24/18 05/24/18 05/24/18 20:00 21:30 22:30 23:29 Temp 97.9 97.9 Pulse 64 Resp 16 16 18 B/P (MAP) 132/47 (75) Pulse Ox 93 98 O2 Delivery Room Air Room Air Room Air Room Air 05/25/18 05/25/18 05/25/18 03:31 07:00 08:57 Temp 98.1 97.7 98.1 97.7 Pulse 61 59 Resp 18 16 B/P (MAP) 120/51 (74) 111/44 (66) Pulse Ox 96 92 O2 Delivery Room Air Room Air Room Air Intake and Output 05/24/18 05/24/18 05/25/18 15:00 23:00 07:00 Intake Total 700 ml 900 ml 600 ml Balance 700 ml 900 ml 600 ml ARELIS RUDOLPH MD May 25, 2018 10:18
--- NOTE | 2018-05-25 10:25 | NUR ---
SW following pt. Spoke with RN and pt's had taken Rx to pharmacy to check coverage her coverage for Insulin/Glucometer. Pt able to dc home once coverage is confirmed.
[2018-05-25 11:00] VITALS: BP 134/56
[2018-05-25] MEDS: INSULIN LISPRO 300 UNITS/3 ML INSULN.PEN. SQ SCH ×2 (12:08→17:33)
--- NOTE | 2018-05-25 13:37 | NUR ---
pt came out of room and wanted to speak with a it support specialist. informed her that we do not have one here at this hospital. she then wanted to be transfered to . Called Dr Sandoval, informed him that pt wanted to be transfered to . He stated he will not transfer pt but pt may be discharged home and then she may go to on her own. Have informed pt of dr tovar. Kel Maki RN
[2018-05-25] MEDS: ALPRAZolam 0.5 MG TABLET PO PRN (14:00)
[2018-05-25 15:00] VITALS: BP 133/76
[2018-05-25 19:56] VITALS: BP 107/54
--- NOTE | 2018-05-25 20:07 | DS ---
DATE OF DISCHARGE: 05/25/2018 HOSPITAL SUMMARY: The patient known to me, diabetic whose last A1c in 01/2018 was 8.0. She has been on metformin since then, but in the last few weeks had increasing symptoms of thirst, nocturia, weakness and fatigue. She was admitted to the ER with high blood sugar and her A1c was found to be 16. Sodium was mildly low consistent with pseudohyponatremia and the rest of the electrolytes were normal and there was no acidosis present. Urine showed a few white blood cells and urinalysis is not growing any infection at this time. She was treated with increasing doses of insulin, most recently Lantus 70 units and NovoLog 15 units with meals. Continuing to run labile blood sugars in the 200-400 range. Possible UTI was treated with Levaquin and Cipro and she has had some improvement there. She has decided to go to [facility] for "specialist icu" and I am going to discharge her without her leaving AMA as she is medically appropriate to seek care wherever she prefers. FINAL DIAGNOSES: 1. Severe hyperglycemia secondary to poorly controlled type 2 diabetes mellitus. 2. Urinary tract infection. 3. Pseudohyponatremia. OPERATIONS, PROCEDURES, COMPLICATIONS, AND CONSULTATIONS: None. DISPOSITION: No prescriptions were given. The patient understands she is leaving to seek medical care at [facility] through the Emergency Room, presumably to be admitted with further insulin treatments. She understands the risks and benefit of this decision and she is medically stable to do this. She will follow up with me if she decides to in the future or with [facility], whichever her preference. SWETHA CABA MD DR: REGI/shelly JOB#: [id number] / [id number]
[2018-05-25] MEDS: LACTOBACILLUS RHAMNOSUS GG 1 CAPSULE. PO SCH (20:08)
[2018-05-25 23:23] VITALS: BP 113/46
[2018-05-26 02:21] VITALS: BP 116/58
[2018-05-26] MEDS: ALPRAZolam 0.5 MG TABLET PO PRN (02:28)
[2018-05-26] MEDS: traMADol 50 MG TABLET PO PRN (02:29)
[2018-05-26 07:24] VITALS: BP 120/40
[2018-05-26] MEDS: INSULIN LISPRO 300 UNITS/3 ML INSULN.PEN. SQ SCH ×2 (07:30→11:07)
--- NOTE | 2018-05-26 07:57 | DISCH ---
DISCHARGE INSTRUCTIONS Condition on Discharge Condition on Discharge: Stable Activity After Discharge Activity Instructions for Disc: No restrictions, Resume previous activity, Activity as tolerated Diet after Discharge Diet after Discharge: Cardiac, Diabetic No Calorie Level Diet Texture: Regular Checks after Discharge Checks after discharge: Check blood press - daily Follow-Up Follow up with: dr ugarte 3-5 d Treatment/Equipment after DC Adaptive Equipment Issued: None SWETHA CABA MD May 26, 2018 07:57
--- NOTE | 2018-05-26 08:00 | PDOC ---
Provider Note Provider Note [id number] SWETHA CABA MD May 26, 2018 08:00
[2018-05-26] MEDS: metFORMIN 500 MG TABLET PO SCH (08:33)
[2018-05-26] MEDS: NYSTATIN TOPICAL POWDER 15GM BOTTLE. TP SCH (08:33)
[2018-05-26] MEDS: hydroCHLOROthiazide 25 MG TABLET PO SCH (08:34)
[2018-05-26] MEDS: SPIRONOLACTONE 25 MG TABLET PO SCH (08:34)
[2018-05-26] MEDS: LACTOBACILLUS RHAMNOSUS GG 1 CAPSULE. PO SCH (08:34)
[2018-05-26] MEDS: INSULIN GLARGINE 300 UNITS/3 ML INSULN.PEN. SQ SCH (08:41)
[2018-05-26] MEDS ORDERED: ALPRAZolam 0.5 MG TABLET PO ONE (10:30)
--- NOTE | 2018-05-26 10:34 | PDOC ---
PROGRESS NOTES Assessment RSD, complex regional pain syndrome I, chronic. Hyperglycemia, glucose >500 checked in urgent care clinic. Metabolic encephalopathy. Hyponatremia, Na+ 125. Hyperkalemia, K+ 5.2. Generalized weakness. Numbness, tingling, burning and pain around neck and UE. UTI. DM, not controlled, HgbA1C 16.3 HTN. Chronic ear pain, diabetic external ear channel infection. Depression. Obesity. Plan Control hyperglycemia. Lyrica 100 mg bid with titration up, but patient had insurance problems for coverage. Vit B6 10 mg daily. Vit B1 100 mg daily. C-spine MRI w/o contrast, out-patient basis [place]. See Dr. Quiñones as outpatient regarding possible spinal cord stimulator Subjective No complaints, wants to go home, happy about her sugar levels now Objective Vital Signs Date Time Temp Pulse Resp B/P (MAP) Pulse Ox O2 Delivery O2 Flow Rate FiO2 05/26/18 08:00 Room Air 05/26/18 07:24 98.0 81 18 120/40 (66) 97 98.0 Intake and Output 05/26/18 07:00 Intake Total 570 ml Balance 570 ml Intake Oral 570 ml # Voids 6 PHYSICAL EXAM Alert. Oriented to time, place and person. PERRL. EOMI. CN: no focal findings. Muscle tone: normal. Muscle strength: 5 -/5 DTR: 1+ Plantar reflex: flexor Gait: not examined in bed. Sensory exam: no abnormal findings. No cerebellar signs elicited. No skin changes of complex regional pain syndrome (She says that the arm turns colors when it is manipulated) Review of Relevant I have reviewed the following items zurdo (where applicable) has been applied. Labs Laboratory Tests Test 05/24/18 11:45 05/24/18 12:20 05/24/18 16:47 05/24/18 19:41 Glucose (Fingerstick) 301 mg/dL (70-99) 235 mg/dL (70-99) 291 mg/dL (70-99) Erythrocyte Sedimentation Rate 40 (0-25) Creatine Kinase 22 U/L (26-192) Vitamin B12 Level 738 pg/mL (247-911) Test 05/25/18 02:33 05/25/18 07:12 05/25/18 11:19 05/25/18 17:03 Glucose (Fingerstick) 287 mg/dL (70-99) 249 mg/dL (70-99) 504 mg/dL (70-99) 191 mg/dL (70-99) Test 05/25/18 20:37 05/26/18 06:21 05/26/18 07:10 Glucose (Fingerstick) 144 mg/dL (70-99) 153 mg/dL (70-99) 162 mg/dL (70-99) Laboratory Tests Test 05/25/18 11:19 05/25/18 17:03 05/25/18 20:37 05/26/18 06:21 Glucose (Fingerstick) 504 mg/dL (70-99) 191 mg/dL (70-99) 144 mg/dL (70-99) 153 mg/dL (70-99) Test 05/26/18 07:10 Glucose (Fingerstick) 162 mg/dL (70-99) Microbiology 05/22/18 Urine Culture - Final, Complete 05/22/18 Urine Culture Result 1 (ELINOR) - Final, Complete Medications Current Medications Sodium Chloride 1,000 ml @ 1,000 mls/hr 1X ONCE IV Last administered on at 20:17; Start 05/22/18 at 20:15; Stop 05/22/18 at 21:14; Status DC Sodium Chloride 1,000 ml @ 1,000 mls/hr 1X ONCE IV Last administered on at 20:15; Start 05/22/18 at 20:15; Stop 05/22/18 at 21:14; Status DC Fentanyl Citrate (Fentanyl 2ml Vial) 25 mcg 1X ONCE IV Last administered on 05/22/18at 20:18; Start 05/22/18 at 20:15; Stop 05/22/18 at 20:16; Status DC Insulin Human Regular (HumuLIN R VIAL) 10 unit 1X ONCE SQ Last administered on 05/22/18at 23:30; Start 05/22/18 at 23:00; Stop 05/22/18 at 23:01; Status DC Sodium Chloride 1,000 ml @ 100 mls/hr Q10H IV ; Start 05/23/18 at 00:00; Stop at 00:01; Status DC Acetaminophen (Tylenol) 650 mg PRN Q4HRS PRN PO MILD PAIN; Start 05/22/18 at 23: 45; Stop 05/23/18 at 23:44; Status DC Insulin Human Lispro (HumaLOG) 0-5 UNITS TIDWMEALS SQ Last administered on at 09:31; Start 05/23/18 at 08:00; Stop 05/23/18 at 12:36; Status DC Dextrose (Dextrose 50%-Water Syringe) 12.5 gm PRN Q15MIN PRN IV SEE COMMENTS; Start 05/23/18 at 00:00 Nystatin (Nystop) 1 jeremy BID TP Last administered on 05/26/18at 08:33; Start at 09:00 Neomycin/ Polymyxin/ Hydrocortisone (Cortisporin Otic) 2 drop QID AD Last administered on 05/25/18at 20:09; Start 05/23/18 at 09:00; Stop 05/26/18 at 08:01; Status DC Ceftriaxone Sodium (Rocephin) 1 gm 1X ONCE IVP ; Start 05/23/18 at 08:45; Stop 05/23/18 at 08:46; Status UNV Metformin HCl (Glucophage) 500 mg BIDWMEALS PO Last administered on 05/26/18at 08 :33; Start 05/23/18 at 09:08 Levofloxacin/ Dextrose 100 ml @ 100 mls/hr ONCE ONCE IV Last administered on 05/23/18at 09:02; Start 05/23/18 at 09:00; Stop 05/23/18 at 09:59; Status DC Insulin Human Lispro (HumaLOG) 15 units ONCE ONCE SQ Last administered on at 13:07; Start 05/23/18 at 12:30; Stop 05/23/18 at 12:37; Status DC Insulin Human Lispro (HumaLOG) 10 units TIDAC SQ Last administered on 05/24/18 16:30; Start 05/23/18 at 16:30; Stop 05/25/18 at 08:09; Status DC Insulin Human Lispro (HumaLOG) 5 units TIDAC SQ ; Start 05/23/18 at 16:30; Stop 05/25/18 at 08:10; Status DC Insulin Glargine (Lantus) 20 units DAILY SQ Last administered on 05/23/18at 13:08 ; Start 05/23/18 at 13:00; Stop 05/24/18 at 02:31; Status DC Diphenhydramine HCl (Benadryl) 25 mg PRN BID PRN PO ITCHING; Start 05/23/18 at 13:15 Diphenhydramine HCl (Benadryl) 50 mg PRN QHS PRN PO INSOMNIA Last administered on 05/25/18 02:25; Start 05/23/18 at 13:15 Hydrochlorothiazide (Hydrodiuril) 25 mg DAILY PO Last administered on 05/26/18 08:34; Start 05/23/18 at 14:00 Tramadol HCl (Ultram) 50 mg PRN Q6HRS PRN PO MODERATE TO SEVERE PAIN Last administered on 05/26/18 02:29; Start 05/23/18 at 13:15 Spironolactone (Aldactone) 12.5 mg DAILY PO Last administered on 05/26/18 08:34 ; Start 05/23/18 at 14:00 Thiamine Mononitrate (Vitamin B-1) 100 mg DAILY PO Last administered on 08:51; Start 05/23/18 at 17:00; Stop 05/26/18 at 08:01; Status DC Pyridoxine HCl (Vitamin B-6) 50 mg DAILY PO Last administered on 05/25/18 08:51 ; Start 05/23/18 at 17:00; Stop 05/26/18 at 08:01; Status DC Alprazolam (Xanax) 0.5 mg PRN Q8HRS PRN PO ANXIETY / AGITATION Last administered on 05/26/18 02:28; Start 05/23/18 at 17:30; Stop 05/26/18 at 08:01; Status DC Insulin Glargine (Lantus) 40 units DAILY SQ Last administered on 05/24/18 09:00 ; Start 05/24/18 at 09:00; Stop 05/24/18 at 12:15; Status DC Insulin Glargine (Lantus) 20 units 1X ONCE SQ Last administered on 05/24/18 02 :53; Start 05/24/18 at 03:00; Stop 05/24/18 at 03:01; Status DC Insulin Human Lispro (HumaLOG) 20 units 1X ONCE SQ Last administered on 02:52; Start 05/24/18 at 03:00; Stop 05/24/18 at 03:01; Status DC Insulin Glargine (Lantus) 60 units DAILY SQ ; Start 05/25/18 at 09:00; Stop at 09:00; Status DC Levofloxacin/ Dextrose 100 ml @ 100 mls/hr Q24H IV Last administered on at 13:00; Start 05/24/18 at 13:00; Stop 05/25/18 at 08:10; Status DC Insulin Glargine (Lantus) 70 units DAILY SQ Last administered on 05/26/18at 08:41 ; Start 05/25/18 at 09:00 Insulin Human Lispro (HumaLOG) 12 units TIDAC SQ Last administered on 05/25/18at 17:33; Start 05/25/18 at 11:30 Ciprofloxacin (Cipro) 250 mg BID PO Last administered on 05/25/18at 20:08; Start 05/25/18 at 09:00; Stop 05/26/18 at 08:01; Status DC Fluconazole (Diflucan) 150 mg 1X ONCE PO Last administered on 05/25/18at 08:47; Start 05/25/18 at 08:00; Stop 05/25/18 at 08:17; Status DC Lactobacillus Rhamnosus (Culturelle) 1 cap BID PO Last administered on at 08:34; Start 05/25/18 at 21:00 Alprazolam (Xanax) 0.5 mg 1X ONCE PO Last administered on 05/26/18at 09:48; Start 05/26/18 at 10:30; Stop 05/26/18 at 10:31 Active Scripts Active Reported Metformin Hcl 500 Mg Tablet 1,000 Mg PO DAILYBFRSUP Spironolactone 25 Mg Tablet 12.5 Mg PO DAILY Hydrochlorothiazide Tablet (Hydrochlorothiazide) 25 Mg Tablet 25 Mg PO DAILY Tramadol Hcl 50 Mg Tablet 50 Mg PO PRN Q6HRS PRN Benadryl (Diphenhydramine Hcl) 25 Mg Capsule 50 Mg PO PRN QHS PRN Benadryl (Diphenhydramine Hcl) 25 Mg Capsule 25 Mg PO PRN BID PRN Vitals/I & O Vital Sign - Last 24 Hours 305/25/18 05/25/18 05/25/18 11:00 15:00 19:56 20:00 Temp 98.3 97.8 98.4 98.3 97.8 98.4 Pulse 83 87 84 Resp 16 18 18 B/P (MAP) 134/56 (82) 133/76 (95) 107/54 (71) Pulse Ox 91 95 96 O2 Delivery Room Air Room Air Room Air Room Air 05/25/18 05/25/18 05/26/18 05/26/18 20:08 23:23 02:21 02:29 Temp 98.4 97.4 98.4 97.4 Pulse 88 66 Resp 16 18 B/P (MAP) 113/46 (68) 116/58 (77) Pulse Ox 93 97 O2 Delivery Room Air Room Air Room Air Room Air 05/26/18 05/26/18 05/26/18 03:34 07:24 08:00 Temp 98.0 98.0 Pulse 81 Resp 18 B/P (MAP) 120/40 (66) Pulse Ox 97 O2 Delivery Room Air Room Air Room Air Intake and Output 05/25/18 05/25/18 05/26/18 15:00 23:00 07:00 Intake Total 570 ml Balance 570 ml ARELIS RUDOLPH MD May 26, 2018 10:34
--- NOTE | 2018-05-26 11:53 | NUR ---
Discharge Note: KIKI POOLE Discharge instructions and discharge home medications reviewed with Patient and a copy given. All questions have been answered and understanding verbalized. The following instructions and handouts were given: Diet, activity, medication list and follow up instructions provided. Patient educated and demonstrated use of insulin syringe and drawing medication. Discontinued lines and drains: Peripheral IV discontinued and catheter intact. Patient discharged to Home or Self Care with Family Member via Wheelchair
--- NOTE | 2018-05-26 15:13 | DS ---
DATE OF DISCHARGE: 05/26/2018 HOSPITAL SUMMARY: A 67-year-old white female who came in with severe hyperglycemia and ear pain. Urine culture had no growth. Blood sugar was high around 500. The A1c was high at 16. Sodium was mildly low at 126 and normalized with glucose for recovery. The potassium was elevated at 5.2 and came down to 3.7 as well. Liver function tests were mildly elevated, troponin was unremarkable. TSH and B12 were normal. Chest x-ray was clear. She was given Basaglar and Humalog in increasing doses and ultimately her blood sugar started running in the 100-200 range and she is feeling better and comfortable to be followed as an outpatient. FINAL DIAGNOSES: 1. Poorly controlled type 2 diabetes mellitus, insulin dependent. 2. Pseudohyponatremia. 3. Hyperkalemia, resolved. OPERATIONS, PROCEDURES, COMPLICATIONS: None. CONSULTATIONS: Dr. Grimes. DISPOSITION: She will take Basaglar as a vial for lower cost currently at 70 units at bedtime and Humalog 12 units with mealtime. She will check her blood sugars twice a day, come to the office in 1 week with her monitor and we will adjust doses accordingly. Continue home meds including metformin for now. DIET: Diabetic diet. ACTIVITY: As tolerated. PROGNOSIS: Good. SWETHA CABA MD DR: REGI/nts JOB#: [id number] / [id number]
== END 2018-05-26 11:52 | disposition home or self-care (01) | DRG 637 ==
LOC: ER 19:13 → 6 SOUTH 22:50
PROVIDERS: ADMIT Family Medicine; ATTEND Family Medicine
DX: E11.65 Type 2 diabetes mellitus with hyperglycemia (principal); G93.41 Metabolic encephalopathy; G90.50 Complex regional pain syndrome I, unspecified; E87.1 Hypo-osmolality and hyponatremia; N39.0 Urinary tract infection, site not specified; F32.9 Major depressive disorder, single episode, unspecified; H66.91 Otitis media, unspecified, right ear; E66.9 Obesity, unspecified; E87.5 Hyperkalemia; I10 Essential (primary) hypertension; Z90.49 Acquired absence of other specified parts of digestive tract; Z90.710 Acquired absence of both cervix and uterus; Z88.1 Allergy status to other antibiotic agents; Z88.0 Allergy status to penicillin; Z88.2 Allergy status to sulfonamides; Z87.891 Personal history of nicotine dependence; Z79.4 Long term (current) use of insulin; Z68.33 Body mass index [BMI] 33.0-33.9, adult
CPT/HCPCS: 36415; 71045; 80053; 80307; 81001; 82010; 82550; 82607; 82962; 83036; 83735; 83930; 84443; 84484; 85007; 85025; 85651; 87086; 93005; 96372; 96374; J1815; J1956; J3010; J7030; Q0163; 99285-25